=== PATIENT | female | born 2000 | race Two or more races ===

== ENCOUNTER 2022-04-03 14:54 | Emergency (ER) | payer OTHER, SELFPAY ==
[2022-04-03 15:00] VITALS: BP 110/65; PULSE 98; RESP 18; TEMP 36.9; O2SAT 100
[2022-04-03 15:25] LABS: Appearance Urine Cloudy (Clear); Bilirubin Urine Negative (Negative); Blood Urine 1+ (Negative); Color Urine Yellow (Yellow); Glucose Urine UA Negative (Negative); Ketones Urine Negative (Negative); Leukocyte Esterase Ur 3+ LEU/UL (Negative); Nitrate Urine Positive (Negative); Protein Urine 2+ mg/dL (Negative); Specific Grav Ur 1.015 (1.001-1.035); pH Urine 7.5 (5.0-9.0)
[2022-04-03 15:35] LABS: Add Urine Microscopic? YES; Amorphous Sediment Urine Few; Bacteria Urine Trace /hpf; Mucus Urine Rare /lpf; Squamous Epithelial Cell Urine Many /hpf (Few); WBC Urine >75 /hpf
--- NOTE | 2022-04-03 16:34 | PC.NURSE ---
Pt not in lobby when called to go to exam room.
== END 2022-04-03 16:34 | disposition left against medical advice (07) ==
LOC: ANHED 16:53
PROVIDERS: Emergency Provider Emergency Medicine
DX: R50.9 Fever, unspecified (principal)
CPT/HCPCS: 81001; 87077; 87086; 87186; 99199

== ENCOUNTER 2022-04-04 13:47 | Inpatient (IN) | payer OTHER, SELFPAY ==
[2022-04-04] VITALS (8 sets, daily range): BP systolic 98–124; BP diastolic 48–71; PULSE 70–120; RESP 16; TEMP 36.4–37.6; O2SAT 99–100
--- NOTE | ~2022-04-04 | XR_ITS ---
EXAMINATION: XR chest 1V portable INDICATION: Hypoxia TECHNIQUE: Portable AP chest at 0534 hours COMPARISON: None available FINDINGS: There are diffuse interstitial and airspace opacities. A retrocardiac opacity is present. S mall pleural effusions are suggested. There is no pneumothorax. The cardiomediastinal silhouette is n ormal. IMPRESSION: 1. Retrocardiac airspace opacity, pneumonia versus atelectasis. 2. Diffuse interstitial and airspace opacities, consistent with pneumonia/or pulmonary edema. Reviewed, dictated and finalized at location A. IMPRESSION: 1. Retrocardiac airspace opacity, pneumonia versus atelectasis. 2. Diffuse interstitial and airspace opacities, consistent with pneumonia/or pu lmonary edema.
--- NOTE | ~2022-04-04 | XR_ITS ---
EXAMINATION: XR chest 1V portable INDICATION: Respiratory failure TECHNIQUE: Portable AP chest at 0851 hours COMPARISON: 04/07/2022 FINDINGS: There are small pleural effusions. A mild diffuse interstitial pattern persists but has imp roved. There is also improvement in the previously described retrocardiac opacity. The cardiomediasti nal silhouette is normal. No pneumothorax is identified. IMPRESSION: 1. Small pleural effusions. 2. Improving interstitial and airspace opacities, likely resolving pulmonary edema. Reviewed, dictated and finalized at location A. IMPRESSION: 1. Small pleural effusions. 2. Improving interstitial and airspace opacities, likely resolving pulmonary ed andrés.
--- NOTE | ~2022-04-04 | CT_ITS ---
EXAMINATION: CT abdomen pelvis w con DATE: 04/08/2022 19:36 INDICATION: pyelonephritis TECHNIQUE: Computed tomography (CT) of the abdomen and pelvis was performed with 100 mL Omnipaque-300 intravenous contrast. Automated exposure control and iterative reconstruction technique were employe d. The dose-length product was 205.46 mGy-cm. COMPARISON: 04/04/2022 FINDINGS: Lower thorax: Small bilateral pleural effusions. Heterogeneously enhancing parenchymal opacities. Liver: Chronic coarse calcification in the right lobe. No mass. Biliary/Gallbladder: Gallbladder is normal. No bile duct dilation. Spleen: Normal. Pancreas: No mass or duct dilation. Adrenals:No mass. Kidneys: Patchy right renal parenchymal enhancement. Simple right lower pole cyst. Irregular peripher al hypoenhancing area on the right, may reflect developing abscess. GI tract: No small or large bowel dilation. Appendix not visualized. Mesentery/Peritoneum: No ascites, mass, or free air. Retroperitoneum: No mass. Pelvis: Bladder wall thickening, otherwise the pelvic organs are within normal limits. Soft Tissues: Soft tissues and body wall unremarkable. Bones: No acute osseous finding. IMPRESSION: 1. Bilateral lower lobe findings suspicious for pneumonia. Small bilateral effusions 2. Arthritis, with possible developing right lower pole abscess. 3. Possible cystitis. Reviewed, dictated and finalized at location K. IMPRESSION: 1. Bilateral lower lobe findings suspicious for pneumonia. Small bilateral effu sions 2. Arthritis, with possible developing right lower pole abscess. 3. Possible cystitis.
--- NOTE | ~2022-04-04 | XR_ITS ---
EXAMINATION: XR chest 2V DATE: 04/11/2022 07:58 INDICATION: Pneumonia. Septic. TECHNIQUE: PA and lateral views of the chest were obtained. COMPARISON: Chest radiograph dated 04/08/2022 FINDINGS: There is been some interval improvement in the airspace opacities in the left lower lung zone. Persis tent small bilateral pleural effusions. No pulmonary edema or pneumothorax. The cardiomediastinal bernard houette is normal. Visualized bones and soft tissues are unremarkable. IMPRESSION: 1. Small bilateral pleural effusions with improvement in left basilar pneumonia and/or atelectasis. Reviewed, dictated and finalized at location A.
--- NOTE | ~2022-04-04 | CT_ITS ---
EXAMINATION: CT abdomen pelvis wo con DATE: 04/04/2022 16:06 INDICATION: Left flank pain. Urinary tract infection. TECHNIQUE: Computed tomography (CT) of the abdomen and pelvis was performed without intravenous contr ast. Automated exposure control and iterative reconstruction technique were employed. Exam dose: 187 .18 mGy-cm total exam DLP. COMPARISON: None. FINDINGS: The lung bases are clear of infiltrate or consolidation. Normal heart size. No pericardia l or pleural effusion. Subtle amorphous right hepatic calcifications are noted. No hepatic, splenic, pancreatic, adrenal spa ce-occupying mass lesion is evident. There is mild ill-defined diminished attenuation of the posterolateral mid to lower right kidney, and mild inferior perirenal fluid. The findings suggest right acute pyelonephritis. No urinary tract calculus or hydroureteronephrosis is detected. There is prominent thickening of the wall of the urinary bladder and mild pericystic fat stranding, w hich may be due to cystitis. Mild free fluid in the cul-de-sac which may be physiologic. The uterus and adnexal areas are unremark able Normal caliber of the abdominal aorta. No intraperitoneal or retroperitoneal or pelvic mass lesion or adenopathy. No bowel obstruction or intraperitoneal free air. Transitional lumbosacral vertebra with sacralization pseudoarthrosis on the right No suspicious osteolytic or osteoblastic lesions IMPRESSION: Focal-defined diminished attenuation of the posterolateral mid to lower right kidney and mild fluid along the inferior aspect of the kidney, suggesting acute pyelonephritis Prominent diffuse thickening and urinary bladder wall and mild fat stranding around the bladder, sugg esting cystitis No urinary tract calculus or hydroureteronephrosis Reviewed, dictated and finalized at Location A. Reviewed, dictated and finalized at location A. IMPRESSION: Focal-defined diminished attenuation of the posterolateral mid to lower right kidney and mild fluid along the inferior aspect of the kidney, sugg esting acute pyelonephritis Prominent diffuse thickening and urinary bladder wall and mild fat stranding ar ound the bladder, suggesting cystitis No urinary tract calculus or hydroureteronephrosis
[2022-04-04 15:22] LABS: Hemoglobin 11.1 g/dL (12.0-15.0); Mean Corpuscular Hemoglobin 25.5 pg (26-34); Mean Corpuscular Volume 84.9 fl (80-100); Mean Platelet Volume 12.9 fl (7.4-10.4); Platelet Count Result 230 k/mm3 (150-375); Red Blood Count 4.36 M/mm3 (4.2-5.4); Red Cell Distribution Width 14.8 % (11.5-14.5); White Blood Count 13.3 K/mm3 (4.5-10.0)
[2022-04-04 15:56] LABS: Band Neutrophils Percent 10 % (0-6); Basophils Absolute Manual 0.13 K/mm3 (0.0-0.1); Basophils Percent Manual 1 % (0-1); Lymphocytes Absolute Manual 1.19 K/mm3 (1.1-4.5); Monocytes Absolute Manual 0.13 K/mm3 (0.1-0.90); Monocytes Percent Manual 1 % (3-9); Neutrophils Absolute Manual 11.83 K/mm3 (1.7-7.2); Neutrophils Percent Manual 79 % (46-73); Total Cells Counted 100
[2022-04-04 15:57] LABS: Hypochromasia 1+ (NORMAL); Platelet Estimate Adequate (Adequate)
--- NOTE | 2022-04-04 16:05 | ED.GENADULT ---
HPI - General Adult General Chief complaint: Urogenital-Female Stated complaint: flank pain Time Seen by Provider: 04/04/22 15:14 Source: RN notes reviewed History of Present Illness HPI narrative: Patient presents emergency department from home for flank pain. Patient states that she has been having dysuria and was diagnosed with a UTI at the [facility] clinic approximately 4 days ago with onset of symptoms she had taken short course antibiotics that she is now finished with the stasis and continued patient states she has pain in her bilateral lower back as well as a low-grade fever which is not been measured she states that with that she does have painful urination she denies any fevers or chills, chest pain shortness of breath vomiting or any other symptoms states she last took Advil at midnight last night Related Data Allergies Allergy/AdvReac Type Severity Reaction Status Date / Time No Known Allergies Allergy Verified 04/04/22 15:23 Review of Systems Review of Systems: Gen.: Ports subjective fevers ENT: Denies congestion Respiratory: Denies shortness of breath or cough CV: Denies chest pain or palpitations GI: Denies abdominal pain nausea, emesis or diarrhea reports flank pain see HPI Musculoskeletal: Denies back pain or muscle pain Neuro: Denies numbness, tingling, weakness or focal weakness Skin: Denies rash Except as documented, all other systems reviewed and negative [facility] Past Medical History Medical History (Updated 04/04/22 @ 16:47 by Misael Anand DO) No significant past medical history Social History Social History (Updated 04/04/22 @ 16:06 by Misael Anand DO) Smoking status: Never smoker Exam Narrative: APPEARANCE: No acute distress, nontoxic, resting in bed EYES: EOMI HEENT: Normocephalic, atraumatic, OMM RESPIRATORY: No respiratory distress Clear to auscultation bilaterally with no rhonchi wheezing or rales. CARDIOVASCULAR: Regular rate and rhythm without murmurs rubs or gallops. ABDOMINAL: Soft, nontender, nondistended, no rebound or guarding bilateral flank tenderness MUSCULOSKELETAl: Moves all extremities. No clubbing, cyanosis or edema. NEURO: Awake and alert. Following commands, speech normal, no focal deficits SKIN:: Warm, dry. No rashes lesions or abrasions PSYCHIATRIC: Normal affect/mood, Course Course Emergency Course: Get old records patient was seen yesterday UA is from yesterday shows UTI culture was sent showing E. coli but no sensitivities Discussed with JENNA Burgos for Dr. Lott agrees with admission at this time Discussed with patient and family results of workup and diagnosis. Discussed need for admission. Patient and family understand and agree to current treatment plan Vital Signs Vital signs: Vital Signs Temperature 97.5 F L 04/04/22 14:29 Pulse Rate 100 04/04/22 14:29 Respiratory Rate 16 04/04/22 14:29 Blood Pressure 113/71 04/04/22 14:29 Pulse Oximetry 100 04/04/22 14:29 Temperature 97.5 F L 04/04/22 14:29 Pulse Rate 100 04/04/22 14:29 Respiratory Rate 16 04/04/22 14:29 Blood Pressure 113/71 04/04/22 14:29 Pulse Oximetry 100 04/04/22 14:29 Medical Decision Making Vital Signs Vital Signs: Vital Signs Temperature 97.5 F L 04/04/22 14:29 Pulse Rate 100 04/04/22 14:29 Respiratory Rate 16 04/04/22 14:29 Blood Pressure 113/71 04/04/22 14:29 Pulse Oximetry 100 04/04/22 14:29 Temperature 97.5 F L 04/04/22 14:29 Pulse Rate 100 04/04/22 14:29 Respiratory Rate 16 04/04/22 14:29 Blood Pressure 113/71 04/04/22 14:29 Pulse Oximetry 100 04/04/22 14:29 Lab Data Result diagrams: 04/04/22 15:13 04/04/22 15:43 Labs: Lab Results 04/04/22 04/04/22 Range/Units 15:13 15:43 WBC 13.3 H (4.5-10.0) K/mm3 RBC 4.36 (4.2-5.4) M/mm3 Hgb 11.1 L (12.0-15.0) g/dL Hct 37.0 (37.0-47.0) % MCV 84.9 (80-100) fl MCH 25.5 L (26-34) pg MCHC 30.0
[2022-04-04 16:10] LABS: Alanine Aminotransferase 19 U/L (4-35); Albumin Level 4.6 g/dL (3.7-5.6); Alkaline Phosphatase 101 U/L (45-116); Anion Gap 14 mmol/L (8-16); Aspartate Amino Transferase 53 U/L (14-36); Bilirubin,Total 0.8 mg/dL (0.2-1.3); Blood Urea Nitrogen 15 mg/dL (8-21); Calcium 8.7 mg/dL (8.9-10.7); Carbon Dioxide 20 mmol/L (22-30); Chloride 102 mmol/L (98-107); Estimated CRCL calculation 70 ml/min; Estimated Glomerular Filt Rate > 60; Glucose 96 mg/dL (65-110); Potassium 4.1 mmol/L (3.4-5.0); Sodium 136 mmol/L (134-143)
[2022-04-04] MEDS: KETOROLAC 30 MG/ML VIAL (*BKC) IV PUSH (16:12)
[2022-04-04] MEDS: SODIUM CHLORIDE 0.9% IV 1,000 ML 999 ML IV CONT (16:12)
--- NOTE | 2022-04-04 16:35 | PC.NURSE ---
patient receiving IV abx at this time. Dr. Anand ordered blood cultures, ok to collect per
[2022-04-04] MEDS: SODIUM CHLORIDE 0.9% IV 1,000 ML 125 ML IV CONT (18:11)
--- NOTE | 2022-04-04 18:30 | PM.IMHP ---
H&P: HPI History of Present Illness Date/Time: 04/04/22 18:30 Chief Complaint: Right flank pain. Narrative: This is a pleasant 21-year-old female with no significant medical history presented to the emergency department for evaluation of right flank pain. Within the last week she was seen at the [facility] for suprapubic discomfort and dysuria at which time she was diagnosed with the UTI and prescribed what sounds like a course of Macrobid. The dysuria cleared up with antibiotic and she was feeling better up until 2 days ago when she started to run a fever. She has been taking Advil however she continues to spike temperatures. She has also had headaches, body aches, and right right flank pain. Last evening she went to the ER however the wait was long and she left without being seen. She returned today as she is not feeling better. CT of the abdomen and pelvis showed findings suggestive of acute pyelonephritis and she is being admitted in this setting for IV antibiotics. Also, the patient's roommate tested positive for COVID a couple of days ago though the patient has been staying with another friend the last 48 hours due to the positive test. She was vaccinated for COVID but did not receive a booster yet. She denies sinus congestion, sore throat, change in smell and taste, cough, nausea, vomiting, and diarrhea. Review of Systems Review of Systems: Twelve systems were reviewed and are negative except for as per HPI. [facility] Past Medical History Medical History (Updated 04/04/22 @ 20:53 by Loretta Nicolas PA-C) No significant past medical history Surgical History Surgical History (Updated 04/04/22 @ 20:49 by Loretta Nicolas PA-C) No history of previous surgery Family History Family History (Updated 04/04/22 @ 20:50 by Loretta Nicolas PA-C) Other No significant family history Social History Social History (Updated 04/04/22 @ 20:51 by Loretta Nicolas PA-C) Smoking status: Never smoker Alcohol intake: never Substance use: never Additional living arrangements comments: Lives with a roommate in [place]. Additional occupation/education comments: Student at [employer]. Meds Home Medications and Allergies Allergies Allergy/AdvReac Type Severity Reaction Status Date / Time No Known Allergies Allergy Verified 04/04/22 15:23 Vital Signs Vital Signs - 24 hr 04/04/22 14:29 Temperature 97.5 F L Pulse Rate 100 Respiratory Rate 16 Blood Pressure 113/71 Pulse Oximetry 100 Exam Narrative: General: Mildly ill-appearing female sitting up in bed. Weight: 50 kg. BMI: 19.5. HEENT: PERRL, EOMI. Sclerae anicteric. Tacky mucous membranes. Oropharynx clear. Neck: Supple. No lymphadenopathy. Respiratory: Lungs are clear to auscultation bilaterally. Cardiovascular: Regular rate and rhythm with S1-S2. Gastrointestinal: Abdomen is soft and nondistended with positive bowel sounds. Positive right-sided CVA tenderness. Skin: Warm and dry. No rash or lesions on limited exam. Extremities: No cyanosis, clubbing, or edema. Radial and pedal pulses intact. Neurological: Alert. Cranial nerves 2-12 are grossly intact. No gross focal deficits to casual conversation. Psychiatric: Pleasant and cooperative with normal mood and affect. H&P: Results Labs Labs: Short CBC 04/04/22 Range/Units 15:13 WBC 13.3 H (4.5-10.0) K/mm3 Hgb 11.1 L (12.0-15.0) g/dL Hct 37.0 (37.0-47.0) % Plt Count 230 (150-375) k/mm3 BMP 04/04/22 15:43 Sodium 136 Potassium 4.1 Chloride 102 Carbon Dioxide 20 L BUN 15 Creatinine 0.90 Glucose 96 Calcium 8.7 L Liver Function 04/04/22 Range/Units 15:43 Total Bilirubin 0.8 (0.2-1.3) mg/dL AST 53 H (14-36) U/L ALT 19 (4-35) U/L Alkaline Phosphatase 101 (45-116) U/L Albumin 4.6 (3.7-5.6) g/dL Imaging Abdomen/Pelvis CT 04/04/22 16:07 IMPRESSION: 1. Focal-defined diminished attenuation of the posterolater
[2022-04-04 21:04] LABS: Influenza A QL RT-PCR Negative (Negative); Influenza B QL RT-PCR Negative (Negative); SARS-CoV-2 RNA PCR Negative
--- NOTE | 2022-04-04 21:55 | PC.NURSE ---
This patient, Jordi Guerrero, was admitted to [facility] Surg Room 302-01. Patient/family oriented to hospital policies and general routines including ID bracelet, bed and alarms, visiting hours, pain management, procedures, bathroom and other care routines, personal items, smoking policy, room service/diet, and visiting hours. Information on how to activate the Rapid Response Team has been discussed. Patient/Family are encouraged to report perceived risks to care and to ask questions if they do not understand what they are told or what they should do.
[2022-04-05] VITALS (12 sets, daily range): BP systolic 100–113; BP diastolic 55–60; PULSE 108–148; RESP 16–46; TEMP 37.2–39.5; O2SAT 98–100
[2022-04-05] MEDS: SODIUM CHLORIDE 0.9% IV 1,000 ML 75 ML IV CONT ×2 (05:07→21:52)
[2022-04-05 07:19] LABS: Hematocrit 29.2 % (37.0-47.0); Hemoglobin 8.7 g/dL (12.0-15.0); Mean Corpuscular HGB Conc 29.8 g/dl (32-36); Mean Corpuscular Hemoglobin 25.1 pg (26-34); Mean Corpuscular Volume 84.4 fl (80-100); Mean Platelet Volume 13.6 fl (7.4-10.4); Platelet Count Result 150 k/mm3 (150-375); Red Blood Count 3.46 M/mm3 (4.2-5.4); Red Cell Distribution Width 14.7 % (11.5-14.5); White Blood Count 10.4 K/mm3 (4.5-10.0)
[2022-04-05 07:35] LABS: Alanine Aminotransferase 21 U/L (4-35); Albumin Level 3.2 g/dL (3.7-5.6); Alkaline Phosphatase 97 U/L (45-116); Anion Gap 4 mmol/L (8-16); Aspartate Amino Transferase 58 U/L (14-36); Bilirubin,Total 0.6 mg/dL (0.2-1.3); Blood Urea Nitrogen 12 mg/dL (8-21); Calcium 7.7 mg/dL (8.9-10.7); Carbon Dioxide 20 mmol/L (22-30); Chloride 108 mmol/L (98-107); Estimated CRCL calculation 92 ml/min; Estimated Glomerular Filt Rate > 60; Glucose 112 mg/dL (65-110); Magnesium 2.1 mg/dL (1.6-2.3); Potassium 3.6 mmol/L (3.4-5.0); Sodium 132 mmol/L (134-143)
[2022-04-05 09:04] LABS: Band Neutrophils Percent 14 % (0-6); Eosinophils Percent Manual 1 % (0-4); Lymphocytes Absolute Manual 0.52 K/mm3 (1.1-4.5); Monocytes Percent Manual 2 % (3-9); Neutrophils Absolute Manual 9.56 K/mm3 (1.7-7.2); Neutrophils Percent Manual 78 % (46-73); Total Cells Counted 100
[2022-04-05 09:05] LABS: Platelet Estimate Adequate (Adequate)
[2022-04-05 10:15] LABS: Appearance Urine Cloudy (Clear); Bilirubin Urine Negative (Negative); Blood Urine 2+ (Negative); Color Urine Yellow (Yellow); Glucose Urine UA Negative (Negative); Ketones Urine Negative (Negative); Leukocyte Esterase Ur 1+ LEU/UL (Negative); Nitrate Urine Negative (Negative); Protein Urine 2+ mg/dL (Negative); pH Urine 6.5 (5.0-9.0)
[2022-04-05 10:38] LABS: Bacteria Urine 4+ /hpf; Mucus Urine Rare /lpf; RBC Urine 21-50 /hpf (0-2); Squamous Epithelial Cell Urine Many /hpf (Few); WBC Urine >75 /hpf
[2022-04-05 10:50] LABS: Add Urine Microscopic? YES
--- NOTE | 2022-04-05 12:35 | PM.IMPN ---
Progress Note: A&P Assessment and Plan (1) Pyelonephritis of right kidney: Code(s): N12 - Tubulo-interstitial nephritis, not specified as acute or chronic Status: Acute (2) Sepsis: Code(s): A41.9 - Sepsis, unspecified organism Status: Acute (3) Bacteremia due to Gram-negative bacteria: Code(s): R78.81 - Bacteremia Status: Acute Additional Plan # right kidney pyelonephritis # bacteremia gram-negative junior # sepsis secondary to urinary tract infection, resolving -patient likely has E coli infection, continue Rocephin, increased dose from 1 g to 2 g daily for bacteremia -awaiting sensitivities and susceptibilities -UA with reflex, urine culture ordered -IV fluids normal saline 75 cc/hour -leukocytosis improving, sepsis resolving -fever, tachycardia, leukocytosis from urinary tract infection and bacteremia Diet: Regular DVT prophylaxis: SCDs Code status: Full code Disposition: Home in 1-3 days (patient hopes to travel on Thursday to [place]) Social: Family updated bedside Time Spent With Patient Time with patient: 25 - 35 minutes Subjective Date/time seen: 04/05/22 12:35 Patient seen examined. She states she is feeling better however she has some blood in urine, fever Tmax 38.6C, chills, headache. Blood cultures growing Gram-negative rods likely E coli. Will increase Rocephin from 1 g daily to 2 g daily. Will re-evaluate lab work tomorrow morning. She denies abdominal pain, chest pain, shortness a breath, diarrhea. Review of Systems Review of Systems: All systems reviewed & are unremarkable except as noted in HPI and below Exam Narrative: - GENERAL: Pleasant woman in no acute distress. - EYES: EOMI. Anicteric. - HENT: Moist mucous membranes. - LUNGS: Clear to auscultation bilaterally, no wheezing, rhonchi, or rales. - CARDIOVASCULAR: Regular rate and rhythm. No murmur. No JVD. - ABDOMEN: Soft, non-tender and non-distended. No palpable masses. She has some right CVA tenderness. - EXTREMITIES: No edema. Peripheral pulses 2+. Non-tender. - NEUROLOGIC: No focal neurological deficits. CN II-XII grossly intact. - PSYCHIATRIC: Awake, Alert and oriented x 3. Appropriate mood and affect. - SKIN: No rashes or lesions. Warm. - LYMPH: No cervical lymphadenopathy. Objective Data Vital Signs Vital Signs: Vital Signs - 24 hr 04/04/22 14:29 04/04/22 16:00 04/04/22 17:00 Temperature 36.4 C L 36.8 C 37.0 C Pulse Rate 100 72 72 Respiratory Rate 16 16 16 Blood Pressure 113/71 118/62 118/60 Pulse Oximetry 100 100 99 04/04/22 18:00 04/04/22 19:00 04/04/22 20:00 Temperature 36.8 C 36.8 C 36.8 C Pulse Rate 76 72 70 Respiratory Rate 16 16 16 Blood Pressure 116/60 124/68 124/64 Pulse Oximetry 100 100 99 04/04/22 21:30 04/04/22 21:54 04/05/22 05:05 Temperature 36.8 C 37.6 C 38.0 C H Pulse Rate 78 120 H Respiratory Rate 16 16 Blood Pressure 124/70 98/48 L Pulse Oximetry 100 99 04/05/22 05:35 04/05/22 06:00 04/05/22 10:37 Temperature 37.2 C 37.2 C 38.6 C H Pulse Rate 112 H Respiratory Rate 16 Blood Pressure 100/55 L Pulse Oximetry 100 04/05/22 11:49 Temperature 37.2 C Pulse Rate Respiratory Rate Blood Pressure Pulse Oximetry Intake/Output Intake/Output: Intake & Output 04/02/22 04/03/22 04/04/22 04/05/22 23:59 23:59 23:59 23:59 Intake Total 1150 1950 Output Total 900 Balance 1150 1050 Meds/Results Medications: Active Medications Generic Name Dose Route Start Last Admin Trade Name Freq PRN Reason Stop Dose Admin Acetaminophen 1,000 mg in 100 mls @ 400 mls/hr 04/04/22 16:42 04/05/22 10:55 Ofirmev 1,000 Mg Ivpb IVPB 04/05/22 16:41 Infused Q6H PRN Infusion Mild Pain (1-3) or Fever Sodium Chloride 1,000 mls @ 75 mls/hr 04/04/22 16:45 04/05/22 10:55 Normal Saline Iv IV CONT 75 mls/hr .[id number] ELBA Infusion Ceftriaxone Sodium 2 gm/ 100 mls @ 200 mls/hr 04/05/22 12:35 Sodium Chloride IVPB Q24
[2022-04-05] MEDS: cefTRIAXone 2 GM in SODIUM CHLORIDE 0.9% IV 100 ML 200 ML IVPB (14:18)
[2022-04-05] MEDS: ACETAMINOPHEN 500 MG TABLET 1000 MG PO (21:48)
[2022-04-06] VITALS (9 sets, daily range): BP systolic 104–115; BP diastolic 48–74; PULSE 107–136; RESP 16–22; TEMP 36.6–39.1; O2SAT 95–97
[2022-04-06] MEDS: HYDROmorphone HCL INJ (*CRX) 1 MG/ML SYR 0.5 MG IV PUSH (03:08)
[2022-04-06] MEDS: ONDANSETRON INJ 4 MG/2 ML VIAL IV PUSH (03:08)
[2022-04-06] MEDS: ACETAMINOPHEN 500 MG TABLET 1000 MG PO ×2 (06:03→13:26)
[2022-04-06 07:24] LABS: Hematocrit 26.8 % (37.0-47.0); Hemoglobin 8.4 g/dL (12.0-15.0); Mean Corpuscular HGB Conc 31.3 g/dl (32-36); Mean Corpuscular Hemoglobin 25.5 pg (26-34); Mean Corpuscular Volume 81.5 fl (80-100); Platelet Count Result 160 k/mm3 (150-375); Red Blood Count 3.29 M/mm3 (4.2-5.4); Red Cell Distribution Width 14.7 % (11.5-14.5); White Blood Count 12.3 K/mm3 (4.5-10.0)
[2022-04-06 07:34] LABS: Anion Gap 7 mmol/L (8-16); Blood Urea Nitrogen 8 mg/dL (8-21); Calcium 7.6 mg/dL (8.9-10.7); Carbon Dioxide 18 mmol/L (22-30); Chloride 107 mmol/L (98-107); Estimated CRCL calculation 92 ml/min; Estimated Glomerular Filt Rate > 60; Glucose 98 mg/dL (65-110); Potassium 3.4 mmol/L (3.4-5.0); Sodium 132 mmol/L (134-143)
[2022-04-06] MEDS: SODIUM CHLORIDE 0.9% IV 1,000 ML 125 ML IV CONT ×2 (08:57→19:59)
[2022-04-06 09:43] LABS: Band Neutrophils Percent 21 % (0-6); Lymphocytes Absolute Manual 0.73 K/mm3 (1.1-4.5); Monocytes Absolute Manual 0.36 K/mm3 (0.1-0.90); Monocytes Percent Manual 3 % (3-9); Neutrophils Absolute Manual 11.19 K/mm3 (1.7-7.2); Neutrophils Percent Manual 70 % (46-73); Platelet Estimate Adequate (Adequate); Total Cells Counted 100
[2022-04-06] MEDS: cefTRIAXone 2 GM in SODIUM CHLORIDE 0.9% IV 100 ML 200 ML IVPB (13:26)
[2022-04-06] MEDS: IBUPROFEN 400 MG TABLET 800 MG PO (14:53)
--- NOTE | 2022-04-06 15:10 | PM.IMPN ---
Progress Note: A&P Assessment and Plan (1) Bacteremia due to Gram-negative bacteria: Code(s): R78.81 - Bacteremia Status: Acute (2) Person under investigation for COVID-19: Code(s): Z20.822 - Contact with and (suspected) exposure to COVID-19 Status: Acute (3) Pyelonephritis of right kidney: Code(s): N12 - Tubulo-interstitial nephritis, not specified as acute or chronic Status: Acute (4) Sepsis: Code(s): A41.9 - Sepsis, unspecified organism Status: Acute Additional Plan # right kidney pyelonephritis # bacteremia gram-negative junior # sepsis secondary to urinary tract infection, worsening -ecoli UTI bacteremia sensitive to rocephin, will continue 2g daily dosing -reviewed sensitivities and susceptibilities -IV fluids normal saline increased to 125cc/hr -sepsis appears to be worsening, WBC 10 to 12, fevers Tmax 39.1C, tachycardic, will increase IVF and add motrin to help with fevers. Continue rocephin 2g dosing as it was just changed yesterday afternoon and previous dosing was not sufficient considering the bacteremia. If no improvement by tomorrow, we may need repeat imaging Diet: Regular DVT prophylaxis: SCDs Code status: Full code Disposition: pending clinical course (family was hoping to fly back to [place] on Thursday to be with family) Time Spent With Patient Time with patient: 25 - 35 minutes Subjective Date/time seen: 04/06/22 15:10 Patient seen and examined. She continues to have fevers Tmax 39.1C. Will alternate tylenol and motrin. Abx are appropriate based on e.coli sensitivies, will continue rocephin at 2g dose (was only adjusted yesterday afternoon). If no improvement by tomorrow we may need more imaging. Discussed with patient that we will need to continue IV antibiotics and she is not ready for discharge. She endorses fever, headaches, RUQ pain. Her back pain is improved. Review of Systems Review of Systems: All systems reviewed & are unremarkable except as noted in HPI and below Exam Narrative: - GENERAL: Pleasant woman in no acute distress - EYES: EOMI. Anicteric. - HENT: Moist mucous membranes. - LUNGS: Clear to auscultation bilaterally, no wheezing, rhonchi, or rales. Tachypnic - CARDIOVASCULAR: tachycardic rate and rhythm. No murmur. No JVD. - ABDOMEN: Soft, non-distended. No palpable masses. RUQ tenderness on light palpation - EXTREMITIES: No edema. Peripheral pulses 2+. Non-tender. - NEUROLOGIC: No focal neurological deficits. CN II-XII grossly intact. - PSYCHIATRIC: Awake, Alert and oriented x 3. Appropriate mood and affect. - SKIN: No rashes or lesions. Warm to touch - LYMPH: No cervical lymphadenopathy. Objective Data Vital Signs Vital Signs: Vital Signs - 24 hr 04/05/22 16:00 04/05/22 16:07 04/05/22 17:03 Temperature 38.3 C H 37.7 C H 39.5 C H Pulse Rate 148 H Respiratory Rate 46 H Blood Pressure Pulse Oximetry 98 04/05/22 21:48 04/05/22 21:57 04/05/22 22:48 Temperature 38.2 C H 38.2 C H 37.7 C H Pulse Rate 146 H Respiratory Rate 16 Blood Pressure 100/58 L Pulse Oximetry 98 04/06/22 06:00 04/06/22 06:03 04/06/22 06:59 Temperature 38.3 C H 38.3 C H 38.8 C H Pulse Rate 136 H Respiratory Rate 16 Blood Pressure 104/48 L Pulse Oximetry 95 04/06/22 13:26 04/06/22 14:00 04/06/22 14:31 Temperature 38.6 C H 38.6 C H 39.1 C H Pulse Rate 132 H Respiratory Rate 22 H Blood Pressure 113/74 Pulse Oximetry 96 04/06/22 14:53 Temperature 39.1 C H Pulse Rate Respiratory Rate Blood Pressure Pulse Oximetry Intake/Output Intake/Output: Intake & Output 04/03/22 04/04/22 04/05/22 04/06/22 23:59 23:59 23:59 23:59 Intake Total 1150 3870 1980 Output Total 900 600 Balance 1150 2970 1380 Meds/Results Medications: Active Medications Generic Name Dose Route Start Last Admin Trade Name Freq PRN Reason Stop Dose Admin Acetaminophen 1,000 mg 04/05/22 21:24 04/06/22 13:26 Acet
[2022-04-07] VITALS (23 sets, daily range): BP systolic 108–125; BP diastolic 80–91; PULSE 86–120; RESP 18–36; TEMP 36.8–38.6; O2SAT 70–96
--- NOTE | 2022-04-07 | ECHO_ITS ---
Patient Info Name: Jordi Guerrero Age: 21 years : 2000 Gender: Female Ht: 63 in Wt: 120 lbs BSA: 1.56 m2 HR: 91 bpm BP: 108 / 80 mmHg Heart Rhythm: Sinus Rhythm Technical Quality: Good Exam Date: 04/07/2022 3:29 PM Exam Location: [facility] Card Pulmonary Patient Status: Inpatient Admit Date: 04/05/2022 Staff Ordering Physician: Darvin Escalante MD Jewelry Consultant: Elena Singleton RDCS Attending Provider: Teresa Barton M.A., MD Exam Type: CA echo dop color flow w con Study Info Indications - RESPIRATORY FAILURE Complete two-dimensional, color flow and Doppler transthoracic echocardiogram is performed with contrast to opacify the left ventricle and to improve the deliniation of the left ventricle endocardial borders. Contrast/Agitated Saline Contrast/Ag. Saline: Definity Amount: 2.00 ml Administered By: Elena Singleton RDCS Existing IV Access: Yes IV Access Condition: patent with no signs of infiltration Summary 1. Left ventricular chamber dimension is normal. 2. Left ventricular systolic function is normal, estimated at 55%. 3. There is no increased left ventricular wall thickness. 4. The left ventricular diastolic function is normal. 5. There is no aortic valve stenosis. 6. There is mild mitral valve regurgitation. 7. There is mild tricuspid valve regurgitation. 8. No pulmonary hypertension, estimated pulmonary arterial systolic pressure is 33 mmHg. Left Ventricle Left ventricular chamber dimension is normal. Left ventricular systolic function is normal, estimated at 55%. There is no increased left ventricular wall thickness. The left ventricular diastolic function is normal. Right Ventricle Right ventricular chamber dimension is normal. Right ventricular systolic function is normal. Left Atria Left atrial chamber dimension is normal. Right Atria Right atrial chamber dimension is normal. Aortic Valve The aortic valve is not well visualized. There is no aortic valve stenosis. There is no aortic valve regurgitation. Pulmonic Valve The pulmonic valve is not well visualized. There is trace pulmonic regurgitation. Mitral Valve The mitral valve has normal leaflets. There is mild mitral valve regurgitation. Tricuspid Valve The tricuspid valve leaflets are normal. There is mild tricuspid valve regurgitation. No pulmonary hypertension, estimated pulmonary arterial systolic pressure is 33 mmHg. Pericardium/Pleural The pericardium appears normal. There is trivial pericardial effusion. Inferior Vena Cava Normal inferior vena cava with <50% collapse upon inspiration consistent with elevated right atrial pressure, 10 mmHg. Aorta The aortic root size at the sinus of Valsalva is normal. Left Ventricular Outflow Tract Name Value Normal LVOT 2D LVOT Diameter 1.79 cm LVOT Doppler LVOT Peak Gradient 6 mmHg LVOT Mean Gradient 4 mmHg LVOT VTI 22.84 cm LVOT VTI/AV VTI Ratio 0.80 LVOT Stroke Volume
[2022-04-07] MEDS: ONDANSETRON INJ 4 MG/2 ML VIAL IV PUSH (00:21)
[2022-04-07] MEDS: ACETAMINOPHEN 500 MG TABLET 1000 MG PO ×2 (01:38→09:32)
[2022-04-07] MEDS: LOPERAMIDE HCL 2 MG CAPSULE PO (01:44)
[2022-04-07] MEDS: guaiFENesin/DEXTROMETHORPHAN 10 ML UDC 5 ML PO ×2 (01:44→19:23)
[2022-04-07] MEDS: ALBUTEROL SULFATE NEB 2.5 MG/0.5 ML INH INHALATION (05:42)
[2022-04-07 06:46] LABS: Hematocrit 30.9 % (37.0-47.0); Hemoglobin 9.6 g/dL (12.0-15.0); Mean Corpuscular HGB Conc 31.1 g/dl (32-36); Mean Corpuscular Hemoglobin 25.5 pg (26-34); Mean Platelet Volume 12.7 fl (7.4-10.4); Platelet Count Result 209 k/mm3 (150-375); Red Blood Count 3.77 M/mm3 (4.2-5.4); Red Cell Distribution Width 15.1 % (11.5-14.5); White Blood Count 12.5 K/mm3 (4.5-10.0)
[2022-04-07 06:56] LABS: Lactic Acid Reflex 1.3 mmol/L (0.7-2.0)
[2022-04-07 06:57] LABS: Anion Gap 9 mmol/L (8-16); Blood Urea Nitrogen 6 mg/dL (8-21); Calcium 7.8 mg/dL (8.9-10.7); Carbon Dioxide 18 mmol/L (22-30); Chloride 110 mmol/L (98-107); Estimated CRCL calculation 106 ml/min; Estimated Glomerular Filt Rate > 60; Glucose 107 mg/dL (65-110); Magnesium 1.9 mg/dL (1.6-2.3); Potassium 3.4 mmol/L (3.4-5.0); Sodium 137 mmol/L (134-143)
[2022-04-07 07:58] LABS: Band Neutrophils Percent 11 % (0-6); Lymphocytes Absolute Manual 0.62 K/mm3 (1.1-4.5); Monocytes Percent Manual 4 % (3-9); Neutrophils Absolute Manual 11.37 K/mm3 (1.7-7.2); Neutrophils Percent Manual 80 % (46-73); Total Cells Counted 100
[2022-04-07 07:59] LABS: Platelet Estimate Adequate (Adequate)
[2022-04-07 08:00] LABS: Burr Cells 1+ (NORMAL); Ovalocytes 1+ (NORMAL)
[2022-04-07] MEDS: IBUPROFEN 400 MG TABLET 800 MG PO (09:05)
--- NOTE | 2022-04-07 09:05 | PM.IMPN ---
Progress Note: A&P Assessment and Plan (1) Septicemia: Code(s): A41.9 - Sepsis, unspecified organism Status: Acute Assessment and Plan: Present admission with fever, tachycardia, leukocytosis and bandemia related to Bacteremia, UTI and pyelonephritis. urine culture growing E coli. Blood culture also growing E coli sensitive to ceftriaxone. Repeat urine culture is negative. Patient's condition has worsened with development of hypoxia. White count is unchanged bandemia has improved to 11%. Renal function remains stable. Still with fevers. Will broaden IV antibiotics for now until she has clinical improvement. Still having abdominal pain and back pain although clinically states she feels better. Will consider repeating CT scan of the abdomen pelvis. test was negative (2) Acute respiratory failure: Code(s): J96.00 - Acute respiratory failure, unspecified whether with hypoxia or hypercapnia Status: Acute Assessment and Plan: patient developed acute hypoxia overnight. She also has a cough. COVID and influenza swabs were negative. CT of the abdomen showed that the lung bases were clear on admission. Chest x-ray this morning showing retrocardiac airspace opacity consistent with atelectasis versus pneumonia. She also has diffuse interstitial airspace opacities consistent with pneumonia or pulmonary edema. She is fluid positive So would consider pulmonary edema. Consider also ARDS, COVID or aspiration pneumonitis although these seem less likely. Discussed with lead driver. Will try Lasix IV once. Adding vancomycin was recommended which was done. Will stop Rocephin. Will narrow antibiotics when she is more evidence of clinical improvement . Will moved to the IMU. Wean oxygen as tolerated. Repeat chest x-ray in the morning. Check echocardiogram 38 minutes spent on critical care time (3) Pyelonephritis of right kidney: Code(s): N12 - Tubulo-interstitial nephritis, not specified as acute or chronic Status: Acute Assessment and Plan: patient with UTI treated with Macrobid with clinical improvement initially but then worsened and the did with the development of right-sided CVA tenderness. On presentation, CT shows focal defined diminished attenuation of the posterior lateral mid and lower right kidney and mild fluid suggestive treat pyelonephritis. Blood and urine cultures are positive E coli. White count is unchanged but bandemia actually improved today. Will broaden spectrum of antibiotics until she is afebrile and can further delineate the etiology of her respiratory failure. Consider repeat imaging. (4) DVT prophylaxis: Code(s): Z29.9 - Encounter for prophylactic measures, unspecified Status: Acute Assessment and Plan: SCDs Subjective Date/time seen: 04/07/22 09:05 Interval history: 21yo healthy female here for pyelonephritis. Assuming care. Chart reviewed. She feels more SOB overnight. She is now on O2 at 7L. She has a dry cough. She had post-tussive emesis x1 last night. No nausea but able to eat today. No abd or back pain now. No CP. Urine is clear. She feels she has leg edema Exam Narrative: Tm 102.3 100.4 108/80 120 18 92% 7L Gen - NARD sitting up in bed Chest - inspiraotry crackles bibasilar, nml RR, mild conversational dyspnea CV - tachycardic, regular Abd - Soft, tender in the bilateral upper quadrants and nichol-umbilical area Back - right CVA tenderness Ext - No pedal edema Neuro - Alert and oriented. Nonfocal exam. Psych - Nml mood and affect Skin - Warm and dry Objective Data Vital Signs Vital Signs: Vital Signs - 24 hr 04/06/22 13:26 04/06/22 14:00 04/06/22 14:31 Temperature 101.4 F H 101.4 F H 102.3 F H Pulse Rate 132 H Respiratory Rate 22 H Blood Pressure 113/74 Pulse Oximetry 96 04/06/22 14:53 04/06/22 16:31 04/06/22 22:00 Temperature 102.3 F H 98.3 F 97.9 F Pulse Rate
[2022-04-07] MEDS: FUROSEMIDE INJ 40 MG/4 ML VIAL 20 MG IV PUSH ×2 (09:29→19:23)
[2022-04-07] MEDS: POTASSIUM CHLORIDE 20 MEQ TABLET PO (09:57)
[2022-04-07] MEDS: PERFLUTREN LIPID MICROSPHERES 1.5 ML VIAL DILUTED TO 10 ML TOTAL VOLUME IV PUSH (15:10)
[2022-04-07 16:16] LABS: SARS-CoV-2 RNA PCR Negative
[2022-04-08] VITALS (21 sets, daily range): BP systolic 108–117; BP diastolic 78–97; PULSE 69–113; RESP 20–35; TEMP 37.1–39.4; O2SAT 92–100
[2022-04-08] MEDS: ACETAMINOPHEN 500 MG TABLET 1000 MG PO ×3 (00:05→21:05)
[2022-04-08 05:01] LABS: Basophils Percent Auto 0.8 % (0.2-1.2); Eosinophils Absolute Auto 0.1 K/mm3 (0-0.3); Eosinophils Percent Auto 1.3 % (0-4.4); Hematocrit 29.5 % (37.0-47.0); Hemoglobin 9.2 g/dL (12.0-15.0); Immature Granulocyte Absolute 0.04 K/mm3 (0.00-0.031); Immature Granulocyte Percent A 0.8 % (0-0.5); Lymphocytes Percent Auto 22.8 % (18.3-44.2); Mean Corpuscular HGB Conc 31.2 g/dl (32-36); Mean Corpuscular Hemoglobin 25.1 pg (26-34); Mean Corpuscular Volume 80.6 fl (80-100); Mean Platelet Volume 12.8 fl (7.4-10.4); Monocytes Absolute Auto 0.5 K/mm3 (0.1-0.6); Monocytes Percent Auto 8.5 % (2.6-8.5); Neutrophils Absolute Auto 3.5 K/mm3 (1.3-6.7); Neutrophils Percent Auto 65.8 % (45.5-73.1); Platelet Count Result 223 k/mm3 (150-375); Red Blood Count 3.66 M/mm3 (4.2-5.4); Red Cell Distribution Width 15.1 % (11.5-14.5); White Blood Count 5.3 K/mm3 (4.5-10.0)
[2022-04-08 05:18] LABS: Alanine Aminotransferase 41 U/L (6-35); Albumin Level 3.2 g/dL (3.7-5.6); Alkaline Phosphatase 138 U/L (45-116); Anion Gap 7 mmol/L (8-16); Aspartate Amino Transferase 86 U/L (14-36); Bilirubin,Total 0.5 mg/dL (0.2-1.3); Blood Urea Nitrogen 9 mg/dL (8-21); Calcium 7.8 mg/dL (8.9-10.7); Carbon Dioxide 24 mmol/L (22-30); Chloride 105 mmol/L (98-107); Estimated CRCL calculation 92 ml/min; Estimated Glomerular Filt Rate > 60; Glucose 94 mg/dL (65-110); Potassium 3.3 mmol/L (3.4-5.0); Sodium 136 mmol/L (134-143)
[2022-04-08 05:25] LABS: CRP 21.8 mg/dL (<1.0)
[2022-04-08] MEDS: POTASSIUM CHLORIDE 20 MEQ TABLET PO (09:12)
[2022-04-08] MEDS: guaiFENesin/DEXTROMETHORPHAN 10 ML UDC 5 ML PO ×2 (09:12→16:41)
--- NOTE | 2022-04-08 10:08 | PM.IMPN ---
Progress Note: A&P Assessment and Plan (1) Septicemia: Code(s): A41.9 - Sepsis, unspecified organism Status: Acute Assessment and Plan: Present on admission with fever, tachycardia, leukocytosis and bandemia related to Bacteremia, UTI and pyelonephritis. Urine culture and Blood culture (2of2) also growing E coli relatively pansensitive. Repeat urine culture is negative. test was negative. Patient's condition has worsened with development of hypoxia. White count is normal now. Renal function remains stable and metabolic acidosis resolved. Still with high fevers to 102.3. CXR repeated showing improvement in the air space disease consistent with pulmonary edema. Continue broad-spectrum IV antibiotics for now. Abdominal pain is better but having persistent back pain. Will repeat CT scan of the abdomen pelvis. Increase activity (2) Acute respiratory failure: Code(s): J96.00 - Acute respiratory failure, unspecified whether with hypoxia or hypercapnia Status: Acute Assessment and Plan: Patient developed acute hypoxia overnight and has developed a cough. COVID and influenza swabs were negative. CT of the abdomen showed that the lung bases were clear on admission. Chest x-ray 04/07 showing retrocardiac airspace opacity consistent with atelectasis versus pneumonia. She also has diffuse interstitial airspace opacities consistent with pneumonia or pulmonary edema. She is fluid positive so Lasix IV given. Abx changed and appears to be improving except still with fevers. Able to be weaned off oxygen. Echo showing EF 55% with normal diastolic function and mild valvular disease. Repeat COVID negative. Repeat chest x-ray this morning showing small pleural effusion and improving interstitial and airspace disease. Add incentive spirometry. Increase activity. CT Abd will show lung bases. Check sputum (3) Pyelonephritis of right kidney: Code(s): N12 - Tubulo-interstitial nephritis, not specified as acute or chronic Status: Acute Assessment and Plan: Patient with UTI treated with Macrobid with clinical improvement initially but then worsened with the development of right-sided CVA tenderness. On presentation, CT shows focal defined diminished attenuation of the posterior lateral mid and lower right kidney and mild fluid suggestive treat pyelonephritis. Blood and urine cultures are positive E coli. White count is normal now but still febrile. Could be a lag but consider renal abscess or HCAP. Repeat BCx if continues to be febrile. Repeat CT A/P. (4) Elevated LFTs: Code(s): R79.89 - Other specified abnormal findings of blood chemistry Status: Acute Assessment and Plan: AST 86 and ALT 41 which is higher than admission. Most likely related to the sepsis picture. Will continue to follow. She has been vaccinated against hepatitis-B. Will check hepatitis panel. (5) DVT prophylaxis: Code(s): Z29.9 - Encounter for prophylactic measures, unspecified Status: Acute Assessment and Plan: SCDs Subjective Date/time seen: 04/08/22 10:08 Interval history: 21yo healthy female here for pyelonephritis. Patietn still with fevers. Still has a nonproductive cough. Also has pleuritic symptoms that give her increased cough. She denies any back or abdominal pain. She states that her ankles feel less tight. She denies excessive urine output with the Lasix. Exam Narrative: Tm 102.3 101.1 117/85 89 23 97% RA Gen - NARD sitting up in bed Chest -clear to quiet respirations. Patient has increased cough she takes deep breaths. Normal respiratory rate CV - tachycardic, regular. Telemetry showing sinus tachycardia Abd -soft. Minimal tenderness. Positive bowel sounds. No guarding Back - right CVA tenderness Ext - No pedal edema Psych - Nml mood and affect Skin - Warm and dry Objective Data Vital Signs Vital Signs: Vital Signs - 24 hr 04/07
[2022-04-08] MEDS: ONDANSETRON INJ 4 MG/2 ML VIAL IV PUSH (16:41)
[2022-04-08 22:44] LABS: Vancomycin Trough 5.5 ug/mL (10.0-20.0)
[2022-04-09] VITALS (24 sets, daily range): BP systolic 107–131; BP diastolic 65–89; PULSE 56–98; RESP 16–35; TEMP 36.6–38; O2SAT 96–100
[2022-04-09 04:43] LABS: Basophils Percent Auto 0.5 % (0.2-1.2); Eosinophils Absolute Auto 0.1 K/mm3 (0-0.3); Eosinophils Percent Auto 1.6 % (0-4.4); Hematocrit 27.8 % (37.0-47.0); Hemoglobin 8.6 g/dL (12.0-15.0); Immature Granulocyte Absolute 0.05 K/mm3 (0.00-0.031); Immature Granulocyte Percent A 0.9 % (0-0.5); Lymphocytes Absolute Auto 2.06 K/mm3 (0.9-3.2); Lymphocytes Percent Auto 37.5 % (18.3-44.2); Mean Corpuscular HGB Conc 30.9 g/dl (32-36); Mean Corpuscular Hemoglobin 24.9 pg (26-34); Mean Corpuscular Volume 80.6 fl (80-100); Mean Platelet Volume 12.1 fl (7.4-10.4); Monocytes Absolute Auto 0.7 K/mm3 (0.1-0.6); Monocytes Percent Auto 11.8 % (2.6-8.5); Neutrophils Absolute Auto 2.6 K/mm3 (1.3-6.7); Neutrophils Percent Auto 47.7 % (45.5-73.1); Platelet Count Result 221 k/mm3 (150-375); Red Blood Count 3.45 M/mm3 (4.2-5.4); Red Cell Distribution Width 15.4 % (11.5-14.5); White Blood Count 5.5 K/mm3 (4.5-10.0)
[2022-04-09 05:08] LABS: Alanine Aminotransferase 68 U/L (6-35); Alkaline Phosphatase 136 U/L (45-116); Anion Gap 8 mmol/L (8-16); Aspartate Amino Transferase 124 U/L (14-36); Bilirubin,Total 0.4 mg/dL (0.2-1.3); Blood Urea Nitrogen 10 mg/dL (8-21); Carbon Dioxide 22 mmol/L (22-30); Chloride 104 mmol/L (98-107); Estimated CRCL calculation 106 ml/min; Estimated Glomerular Filt Rate > 60; Glucose 87 mg/dL (65-110); Potassium 3.4 mmol/L (3.4-5.0); Sodium 134 mmol/L (134-143)
[2022-04-09 05:15] LABS: CRP 15.2 mg/dL (<1.0)
[2022-04-09 05:35] LABS: Hepatitis B Surface Antigen Negative (Negative)
[2022-04-09 05:41] LABS: HAV RESULT Negative (Negative); Hepatitis B Core IgM Result Negative (Negative)
[2022-04-09 05:52] LABS: Hepatitis C Virus Antibody Negative (Negative)
[2022-04-09 05:53] LABS: Hypochromasia 1+ (NORMAL); Ovalocytes 1+ (NORMAL); Platelet Estimate Adequate (Adequate)
--- NOTE | 2022-04-09 06:37 | PC.NURSE ---
Left message with hospitalist office for Dr. Escalante regarding IV access on this patient. Unable to obtain IV access and give 0600 abx.
--- NOTE | 2022-04-09 08:47 | PM.IMPN ---
Progress Note: A&P Assessment and Plan (1) Septicemia: Code(s): A41.9 - Sepsis, unspecified organism Status: Acute Assessment and Plan: Present on admission with fever, tachycardia, leukocytosis and bandemia related to EColi bacteremia, UTI and pyelonephritis. Urine culture and Blood culture (2of2) also growing E coli relatively pansensitive. Repeat urine culture is negative. test was negative. Patient's condition has worsened with development of hypoxia. White count is normal now. Renal function remains stable and metabolic acidosis resolved. Still with fevers. CT A/P showing bilateral lower lobe airspace disease concerning for PNA, small bilateral effusions and pyelonephritis with possible abscess formation. Continue broad-spectrum IV antibiotics for now. Urology consult. Add incentive spirometry. (2) Acute respiratory failure: Code(s): J96.00 - Acute respiratory failure, unspecified whether with hypoxia or hypercapnia Status: Acute Assessment and Plan: Patient developed acute hypoxia with a cough. She required up to 7L HFNC. COVID and influenza swabs were negative on admission. CT of the abdomen showed that the lung bases were clear on admission. Chest x-ray 04/07 showing retrocardiac airspace opacity and diffuse interstitial and airspace opacities. She was fluid positive so Lasix IV given x2. Abx changed to cover hospital acquired PNA. She denied increase in UOP but repeat CXR did show improving findings and she was able to come off the Oxygen. Echo showing EF 55% with normal diastolic function and mild valvular disease. Repeat COVID negative. She stil having fevers so CT Abd/Pelvis repeated showing bibasilar airspace disease L>R, small pleural effusion and possible renal abscess. Suspect she had pulmonary edema that has improved but unclear why she would have this; stiff ventricle? Having residual findings on lung imaging and pleuritc symptoms. Could be atelectasis due to difficulty taking a deep breath but concern for PNA which could also explain her persisent fevers. Sputum ordered. Add pneumococcal Ag. Add incentive spirometry. Walk in halls. (3) Pneumonia: Code(s): J18.9 - Pneumonia, unspecified organism Status: Acute Assessment and Plan: Suspect now with PNA. As above. Continue broad spectrum abx. Add Xopenex (4) Pyelonephritis of right kidney: Code(s): N12 - Tubulo-interstitial nephritis, not specified as acute or chronic Status: Acute Assessment and Plan: Patient with UTI treated with Macrobid with clinical improvement initially but then worsened with the development of right-sided CVA tenderness. On presentation, CT shows focal defined diminished attenuation of the posterior lateral mid and lower right kidney and mild fluid suggestive treat pyelonephritis. Blood and urine cultures are positive E coli relatively unger-sensitive. Treated with Rocephin but abx advanced due to change in her clinical status. White count is normal now but still febrile. Repeat CT A/P showing possible PNA and possible renal abscess. Renal function normal. Urology consult. (5) Renal abscess: Code(s): N15.1 - Renal and perinephric abscess Status: Acute Assessment and Plan: As above. (6) Elevated LFTs: Code(s): R79.89 - Other specified abnormal findings of blood chemistry Status: Acute Assessment and Plan: AST 124 and ALT 68 which is higher than admission. Most likely related to the sepsis picture. Hepatitis panel negative. CT scan showing a chronic coarse calcification in the right liver lobe but no masses. Receiving Tylenol 2-3gm/day on average frequently so this may be contributing. Will continue to follow. Change to Ibuprofen. Add pepcid. (7) Anemia: Code(s): D64.9 - Anemia, unspecified Status: Acute Assessment and Plan: Hgb 11.1 on admission but has dropped to the 8-9 range since. She does have
--- NOTE | 2022-04-09 11:21 | WPDURCON ---
Assessment and Plan Assessment and plan (1) Renal abscess: Code(s): N15.1 - Renal and perinephric abscess Status: Acute Assessment and Plan: I called and spoke with Dr. Tucker from Radiology and we reviewed her images as did Dr. Mesa. Both agree that at this time there is no drainable abscess and all areas of inflammation or questionable areas of the right kidney are subcentimeter and too small to drain at this time. Dr. Tucker recommends watching her clinically to ensure continued improvement, if she has new symptoms, or her condition worsens he recommends repeating a CT scan at that time. However, d/t her improvement with her WBC, a negative repeat urine culture, and her young age, we will not repeat any imaging at this time and continue IV antibiotics with surveillance. (2) Sepsis: Code(s): A41.9 - Sepsis, unspecified organism Status: Acute Assessment and Plan: Repeat blood cultures pending, repeat urine cutlure on 04/06/22 was negative. She has had persistent fevers, but is improving clinically, I suspect the fevers may be d/t continued inflammation or pyelonephritis in the right kidney or pneumonia which can take weeks to resolve on a mcc course of culture appropriate antibiotics. She will likely require a RODERICK or CT in one month or so to ensure pyelo is resolved. (3) Pyelonephritis: Code(s): N12 - Tubulo-interstitial nephritis, not specified as acute or chronic Status: Acute Urology Consult Note HPI Date Seen: 04/09/22 Requesting Physician: Teresa Barton MD Primary Care Provider: INTERNAL CONTROL ANALYST PHYSICIAN Consult Narrative Narrative: Jordi Guerrero is a 21 year old female who initially presented to the ER on 04/04/2022 with c/o low back pain, dysuria, fever and chills despite a recent course of antibiotics from her clinic at [facility] for a UTI. She saw a provider at the clinic on 03/31/22 and was given a short course of antibiotics which didn't improve her symptoms. On admission she had a WBC of 13.3 which has improved to 5.5, she is afebrile at this time, but continues to be febrile intermittently despite being on culture appropriate antibiotics. She has a normal creatinine of 0.60. Her urine and blood cultures from 04/04/22 grew E-Coli and she has been on culture appropriate IV antibiotics since. She had a repeat urine culture on 04/06/22 which was negative, a repeat blood culture was drawn this morning and is pending. In the midst of treating her pyelonephritis and sepsis, she has unfortunately developed pneumonia which was not present upon admission. Pnuemonia is noted in the comparison of her CT scans on 04/04/22 and 04/08/22. Her CT from 04/08/22 shows patchy right parenchymal enhancement with irregular peripheral hypoattenuation with an area of possible developing abscess in the right kidney. She is tachypneic at this time, otherwise stable, but continues to c/o right flank and RLQ pain with associated nausea. She is tolerating diet and activity, but is generally fatigued and weakened with a notable cough. She denies a history of chronic UTI's or kidney stones, this is the first UTI she has had. Review of Systems Cardiovascular: Cardiovascular: Denies chest pain Respiratory: Respiratory: Reports cough, Reports pain on inspiration, Reports pain with cough and Reports dyspnea on exertion Gastrointestinal: Gastrointestinal: Reports abdominal pain, Reports nausea and Denies vomiting Genitourinary: Genitourinary: Denies hematuria, Reports dysuria, Denies pelvic pain, Reports flank pain and Denies urinary hesitancy PMF Past Medical History Medical History (Updated 04/09/22 @ 09:30 by Darvin Escalante MD) No significant past medical history Surgical History Surgical History No history of previous surgery Family History Family History Other No significant famil
[2022-04-09] MEDS: FAMOTIDINE 20 MG TABLET PO ×2 (11:48→20:56)
[2022-04-09] MEDS: SALINE LOCK FLUSH 10 ML IV PUSH ×2 (15:19→23:44)
[2022-04-09] MEDS: guaiFENesin/DEXTROMETHORPHAN 10 ML UDC 5 ML PO (15:34)
--- NOTE | 2022-04-09 16:37 | PC.NURSE ---
This patient, Jordi Guerrero, was transferred to [facility] on 04/09/22 at 1544. Personal belongings sent with patient. Report given to Vanessa SMITH. Appropriate documentation sent with patient.
[2022-04-10] VITALS (20 sets, daily range): BP systolic 115–120; BP diastolic 58–88; PULSE 59–94; RESP 14–20; TEMP 36.3–37.2; O2SAT 97–99
[2022-04-10] MEDS: SALINE LOCK FLUSH 10 ML IV PUSH ×3 (05:50→20:38)
[2022-04-10 06:22] LABS: Basophils Percent Auto 0.4 % (0.2-1.2); Eosinophils Absolute Auto 0.1 K/mm3 (0-0.3); Eosinophils Percent Auto 1.7 % (0-4.4); Hematocrit 28.2 % (37.0-47.0); Hemoglobin 8.8 g/dL (12.0-15.0); Immature Granulocyte Absolute 0.07 K/mm3 (0.00-0.031); Immature Granulocyte Percent A 0.9 % (0-0.5); Lymphocytes Absolute Auto 2.57 K/mm3 (0.9-3.2); Lymphocytes Percent Auto 34.4 % (18.3-44.2); Mean Corpuscular HGB Conc 31.2 g/dl (32-36); Mean Corpuscular Hemoglobin 25.1 pg (26-34); Mean Corpuscular Volume 80.3 fl (80-100); Mean Platelet Volume 11.7 fl (7.4-10.4); Monocytes Absolute Auto 0.7 K/mm3 (0.1-0.6); Monocytes Percent Auto 9.8 % (2.6-8.5); Neutrophils Percent Auto 52.8 % (45.5-73.1); Platelet Count Result 248 k/mm3 (150-375); Red Blood Count 3.51 M/mm3 (4.2-5.4); Red Cell Distribution Width 15.3 % (11.5-14.5); White Blood Count 7.5 K/mm3 (4.5-10.0)
[2022-04-10 06:31] LABS: Alanine Aminotransferase 66 U/L (6-35); Albumin Level 3.4 g/dL (3.7-5.6); Alkaline Phosphatase 130 U/L (45-116); Anion Gap 7 mmol/L (8-16); Aspartate Amino Transferase 105 U/L (14-36); Bilirubin,Total 0.3 mg/dL (0.2-1.3); Blood Urea Nitrogen 7 mg/dL (8-21); Calcium 8.3 mg/dL (8.9-10.7); Carbon Dioxide 23 mmol/L (22-30); Chloride 106 mmol/L (98-107); Estimated CRCL calculation 106 ml/min; Estimated Glomerular Filt Rate > 60; Glucose 95 mg/dL (65-110); Potassium 3.4 mmol/L (3.4-5.0); Sodium 136 mmol/L (134-143)
[2022-04-10 07:25] LABS: Iron 26 ug/dL (37-170)
[2022-04-10 07:34] LABS: Percent Iron Saturation 8 % (20-50)
[2022-04-10 07:52] LABS: Thyroid Stimulating Hormone Reflex 0.959 uIU/mL (0.465-4.68)
[2022-04-10] MEDS: FAMOTIDINE 20 MG TABLET PO ×2 (08:18→20:38)
--- NOTE | 2022-04-10 11:21 | PM.IMPN ---
Progress Note: A&P Assessment and Plan (1) Septicemia: Code(s): A41.9 - Sepsis, unspecified organism Status: Acute Assessment and Plan: Present on admission with fever, tachycardia, leukocytosis and bandemia related to EColi bacteremia, UTI and pyelonephritis. Urine culture and Blood culture (2of2) growing E coli relatively pansensitive. Repeat urine culture is negative. test was negative. Patient's condition has worsened with development of hypoxia. White count is normal now. Renal function remains normal and metabolic acidosis resolved. Still with fevers but fever curve improving. CT A/P showing bilateral lower lobe airspace disease concerning for PNA, small bilateral effusions and pyelonephritis with possible abscess formation. Continue incentive spirometry. Sinus tach may be related to deconditioning. Encouraged her to be out of bed and walk in halls. Change abx to Doxycycline and Levaquin. Check EKG. (2) Acute respiratory failure: Code(s): J96.00 - Acute respiratory failure, unspecified whether with hypoxia or hypercapnia Status: Acute Assessment and Plan: Patient developed acute hypoxia with a cough. She required up to 7L HFNC. COVID and influenza swabs were negative on admission. CT of the abdomen showed that the lung bases were clear on admission. Chest x-ray 04/07 showing retrocardiac airspace opacity and diffuse interstitial and airspace opacities. She was fluid positive so Lasix IV given x2. Abx changed to cover hospital acquired PNA. She denied increase in UOP but repeat CXR did show improving findings and she was able to come off the Oxygen. Echo showing EF 55% with normal diastolic function and mild valvular disease. Repeat COVID negative. She stil having fevers so CT Abd/Pelvis repeated showing bibasilar airspace disease L>R, small pleural effusion and possible renal abscess. Suspected she had pulmonary edema that has improved with Lasix as well as PNA. Sputum ordered but not collected. Pneumococcal Ag pending. (3) Pneumonia: Code(s): J18.9 - Pneumonia, unspecified organism Status: Acute Assessment and Plan: Suspect now with PNA. As above. Adjust abx. Continue Xopenex. Encouraged IS use (4) Pyelonephritis of right kidney: Code(s): N12 - Tubulo-interstitial nephritis, not specified as acute or chronic Status: Acute Assessment and Plan: Patient with UTI treated with Macrobid with clinical improvement initially but then worsened with the development of right-sided CVA tenderness. On presentation, CT shows focal defined diminished attenuation of the posterior lateral mid and lower right kidney and mild fluid suggestive treat pyelonephritis. Blood and urine cultures are positive E coli relatively unger-sensitive. Treated with Rocephin but abx advanced due to change in her clinical status. White count is normal now but still with low grade fever. Repeat CT A/P as above. Renal function normal. Urology consulted and appreciate their input. Will change to Levaquin with plans for oral at discharge. (5) Renal abscess: Code(s): N15.1 - Renal and perinephric abscess Status: Acute Assessment and Plan: As above. (6) Elevated LFTs: Code(s): R79.89 - Other specified abnormal findings of blood chemistry Status: Acute Assessment and Plan: AST 124 and ALT 68 at peak. Most likely related to the sepsis picture. Hepatitis panel negative. CT Abd scan showing a chronic coarse calcification in the right liver lobe but no masses or other concerns. Receiving Tylenol 2-3gm/day on average so this was stopped. Will continue to follow. Continue Ibuprofen. (7) Anemia: Code(s): D64.9 - Anemia, unspecified Status: Acute Assessment and Plan: Hgb 11.1 on admission but has dropped to the 8-9 range since. She does have a chronic anemia due to heavy periods and currently having menses.Iron studies consistent wi
--- NOTE | 2022-04-10 11:44 | ECG_ITS ---
Measurements Intervals [place] Rate: 65 P: 20 IA: 131 QRS: -5 QRSD: 90 T: 10 QT: 408 QTc: 425 Interpretive Statements SINUS RHYTHM NORMAL ECG Electronically Signed On 04-10-2022 14:07:52 CDT by Trevor Valenzuela D.O.
[2022-04-10] MEDS: DOXYCYCLINE HYCLATE 100 MG TABLET PO ×2 (12:40→20:38)
[2022-04-10] MEDS: FERROUS SULFATE 324 MG TABLET PO (12:40)
[2022-04-10 17:04] LABS: Folic Acid 16.3 ng/mL (2.76->20); Vitamin B12 > 1000.0 pg/mL (239-931)
[2022-04-11] VITALS (9 sets, daily range): BP systolic 105–130; BP diastolic 61–79; PULSE 56–96; RESP 14–99; TEMP 36.5–37.1; O2SAT 98–100
[2022-04-11 04:53] LABS: Basophils Absolute Auto 0.1 K/mm3 (0.0-0.1); Basophils Percent Auto 0.8 % (0.2-1.2); Eosinophils Absolute Auto 0.2 K/mm3 (0-0.3); Eosinophils Percent Auto 2.6 % (0-4.4); Hemoglobin 9.9 g/dL (12.0-15.0); Immature Granulocyte Absolute 0.15 K/mm3 (0.00-0.031); Immature Granulocyte Percent A 1.9 % (0-0.5); Lymphocytes Absolute Auto 2.65 K/mm3 (0.9-3.2); Lymphocytes Percent Auto 34.4 % (18.3-44.2); Mean Corpuscular HGB Conc 29.1 g/dl (32-36); Mean Corpuscular Hemoglobin 24.8 pg (26-34); Mean Corpuscular Volume 85.2 fl (80-100); Mean Platelet Volume 11.9 fl (7.4-10.4); Monocytes Absolute Auto 0.7 K/mm3 (0.1-0.6); Monocytes Percent Auto 8.6 % (2.6-8.5); Neutrophils Percent Auto 51.7 % (45.5-73.1); Platelet Count Result 346 k/mm3 (150-375); Red Blood Count 3.99 M/mm3 (4.2-5.4); Red Cell Distribution Width 15.7 % (11.5-14.5); White Blood Count 7.7 K/mm3 (4.5-10.0)
[2022-04-11 05:06] LABS: Alanine Aminotransferase 76 U/L (6-35); Albumin Level 3.9 g/dL (3.7-5.6); Alkaline Phosphatase 136 U/L (45-116); Anion Gap 12 mmol/L (8-16); Aspartate Amino Transferase 115 U/L (14-36); Bilirubin,Total 0.4 mg/dL (0.2-1.3); Blood Urea Nitrogen 10 mg/dL (8-21); Calcium 8.8 mg/dL (8.9-10.7); Carbon Dioxide 19 mmol/L (22-30); Chloride 107 mmol/L (98-107); Estimated CRCL calculation 92 ml/min; Estimated Glomerular Filt Rate > 60; Glucose 91 mg/dL (65-110); Magnesium 2.3 mg/dL (1.6-2.3); Potassium 4.2 mmol/L (3.4-5.0); Sodium 138 mmol/L (134-143)
[2022-04-11 05:18] LABS: Hypochromasia 1+ (NORMAL); Platelet Estimate Adequate (Adequate)
[2022-04-11] MEDS: SALINE LOCK FLUSH 10 ML IV PUSH ×2 (09:12→16:44)
[2022-04-11] MEDS: DOXYCYCLINE HYCLATE 100 MG TABLET PO (09:12)
[2022-04-11] MEDS: CIPROFLOXACIN 500 MG TAB PO (09:12)
[2022-04-11] MEDS: FAMOTIDINE 20 MG TABLET PO (09:12)
--- NOTE | 2022-04-11 11:23 | PCNWS ---
Weekly nutritional screen. Patient is tolerating regular diet with adequate intake at 75-100%, outside food brought in. No nutritional needs at this time.
[2022-04-11] MEDS: FERROUS SULFATE 324 MG TABLET PO (11:56)
--- NOTE | 2022-04-11 14:21 | PM.DS ---
DS: Admitting Diagnosis Discharge Date 04/11/22 Admitting Diagnosis Right flank pain DS: Discharge Diagnosis Discharge Diagnosis (1) Septicemia: Code(s): A41.9 - Sepsis, unspecified organism Status: Acute Assessment and Plan: Present on admission with fever, tachycardia, leukocytosis and bandemia related to EColi bacteremia, UTI and pyelonephritis. Urine culture and Blood culture (2of2) growing E coli relatively pansensitive. Repeat urine culture is negative. test was negative. Patient's condition worsened with development of hypoxia. White count normalized. Renal function remained normal. Fever curve improved. Repeat CT A/P showing bilateral lower lobe airspace disease concerning for PNA, small bilateral effusions and pyelonephritis with possible abscess formation. Abx adjusted once she had clinical improvement. (2) Acute respiratory failure: Code(s): J96.00 - Acute respiratory failure, unspecified whether with hypoxia or hypercapnia Status: Acute Assessment and Plan: Patient developed acute hypoxia with a cough. She required up to 7L HFNC. COVID and influenza swabs were negative on admission. CT of the abdomen showed that the lung bases were clear on admission. Chest x-ray 04/07 showing retrocardiac airspace opacity and diffuse interstitial and airspace opacities. She was fluid positive so Lasix IV given x2. Abx changed to cover hospital acquired PNA. Repeat CXR did show improving findings and she was able to come off the Oxygen. Echo showing EF 55% with normal diastolic function and mild valvular disease. Repeat COVID negative. She still having fevers so CT Abd/Pelvis repeated showing bibasilar airspace disease L>R, small pleural effusion and possible renal abscess. Suspected she had pulmonary edema that has improved with Lasix as well as PNA. Sputum ordered but not collected. CXR around the time of discharge showing small bilateral pleural effusions with improvement in left basilar pneumonia and/or atelectasis. (3) Pneumonia: Code(s): J18.9 - Pneumonia, unspecified organism Status: Acute Assessment and Plan: Suspect now with PNA. As above. Encouraged IS use (4) Pyelonephritis of right kidney: Code(s): N12 - Tubulo-interstitial nephritis, not specified as acute or chronic Status: Acute Assessment and Plan: Patient with UTI treated with Macrobid with clinical improvement initially but then worsened with the development of right-sided CVA tenderness. On presentation, CT shows focal defined diminished attenuation of the posterior lateral mid and lower right kidney and mild fluid suggestive treat pyelonephritis. Blood and urine cultures are positive E coli relatively unger-sensitive. Treated with Rocephin but abx advanced due to change in her clinical status. Repeat CT A/P as above. White count normalized and fever resolved. Renal function normal. Urology consulted and appreciate their input. Repeat BCx negative. (5) Elevated LFTs: Code(s): R79.89 - Other specified abnormal findings of blood chemistry Status: Acute Assessment and Plan: AST 124 and ALT 68 at peak. Most likely related to the sepsis picture. Hepatitis panel negative. CT Abd scan showing a chronic coarse calcification in the right liver lobe but no masses or other concerns. Receiving Tylenol 2-3gm/day on average so this was stopped. Will repeat labs as outpatient to ensure this resolves. (6) Anemia: Code(s): D64.9 - Anemia, unspecified Status: Acute Assessment and Plan: Hgb 11.1 on admission but has dropped to the 8-9 range since. She does have a chronic anemia due to heavy periods and currently having menses. Iron studies consistent with iron deficiency anemia. We added oral iron. DS: Summary Hospital Course Reason for hospitalization: 21yo healthy female here for pyelonephritis. Please see H&P for details Hospital Course: Janusz
[2022-04-11 21:31] LABS: Pneumococcal Antigen Urine Not Detected (Not Detected)
[2022-04-13 00:26] LABS: Legionella pneumophila Ag Ur Not Detected (Not Detected)
[2022-04-14 16:40] LABS: Ceruloplasmin 34 mg/dL (18-53)
--- NOTE | 2022-04-15 10:17 | PC.NURSE ---
Ceruloplasmin WNL at 34 Legionella and pneumococcal AG are negative Blood cx are negative Dr. Escalante aware.
== END 2022-04-11 17:31 | disposition home or self-care (01) | DRG 871 ==
LOC: ANHED 16:56 → ANH3MEDSUR 18:24 → ANHICU 04-07 14:15 → ANHIMU 04-10 10:04 → ANH3MEDSUR 04-15 15:31 → ANHICU 04-15 15:31 → ANHIMU 04-15 15:31
PROVIDERS: Emergency Medicine; Physician Assistant; Student in an Organized Health Care Education/Training Program; Admitting Provider Internal Medicine; Emergency Provider Emergency Medicine; Visit Provider Internal Medicine
DX: A41.9 Sepsis, unspecified organism (principal); J96.01 Acute respiratory failure with hypoxia; J18.9 Pneumonia, unspecified organism; N12 Tubulo-interstitial nephritis, not specified as acute or chronic; Z20.822 Contact with and (suspected) exposure to COVID-19; B96.20 Unspecified Escherichia coli [E. coli] as the cause of diseases classified elsewhere; D50.9 Iron deficiency anemia, unspecified
CPT/HCPCS: 36415; 36569; 71045; 71046; 74176; 74177; 80048; 80053; 80074; 80202; 81001; 81025; 82390; 82607; 82728; 82746; 83540; 83550; 83605; 83735; 84443; 85025; 85055; 86140; 87040; 87077; 87086; 87186; 87449; 87502; 87899; 93005; 94640; 96361; 96365; 96375; 96376; 99199; 99285; A9270; C1751; C8929; C9803; G0378; J0131; J0696; J0743; J1170; J1885; J1940; J1956; J2405; J3370; J7030; Q9957; Q9967; U0003; U0005

== ENCOUNTER 2025-09-20 14:49 | Outpatient (CLI) | payer OTHER, SELFPAY ==
--- NOTE | ~2025-09-20 | US_ITS ---
EXAMINATION: US pelvic complete, 09/20/2025 14:57 CDT HISTORY: Lower right sided pelvic pain Comparison: None Technique: Panchal-scale and color Doppler images were obtained. Findings: Uterus: Uterus anteverted 7.5 x 4.5 x 5.9 cm. . Endometrium 1.7 cm, no increased flow. Right Ovary:Right ovary 2.6 x 1.6 x 1.8 cm, no adnexal mass, normal flow. Left Ovary: Left ovary 2.3 x 3.3 x 2.7 cm, no adnexal mass, normal flow. Free Fluid: None Impression: No acute abnormality. Reviewed, dictated and finalized at location P. Impression: No acute abnormality.
== END 2025-09-20 14:50 | disposition home or self-care (01) ==
LOC: MICIMG 14:50
PROVIDERS: PCP Family Medicine; Visit Provider Family Medicine
DX: R10.20 Pelvic and perineal pain unspecified side (principal)
CPT/HCPCS: 76856